=== PATIENT | female | born 1980 | race African-American/Black ===

== ENCOUNTER 2021-12-03 10:18 | Emergency (ER) | payer MEDICAID ==
[~2021-12-03] VITALS: Ht 162.6 cm; Wt 63.6 kg
[2021-12-03] MEDS ORDERED: SODIUM BICARBONATE 8.4% INJ 50ML SYRINGE IV ONE (10:19)
[2021-12-03] MEDS ORDERED: DOPamine 1600mCg/ml 400MG/250ml NSorD5 KIT/BAG IV ONE (10:19)
[2021-12-03] MEDS ORDERED: EPINEPHrine HCL 1 MG/10 ML SYRG IV ONE (10:19)
[2021-12-03] MEDS ORDERED: MAGNESIUM SULF 50% 40 MEQ/10 ML VL IV ONE (10:19)
[2021-12-03] MEDS ORDERED: AMIODARONE HCL (50 MG/ ML) 3 ML VIAL IV ONE (10:19)
[2021-12-03] MEDS ORDERED: CALCIUM CHLOR(10%) 100MG/ML 10ML SYRINGE IV ONE (10:19)
[2021-12-03] MEDS ORDERED: EPINEPHrine HCL 250 ML IV ONE (10:26)
[2021-12-03] MEDS ORDERED: fentaNYL Drip 2500mCg/250mlNS 250 ML IV SCH (10:30)
[2021-12-03] MEDS ORDERED: EPINEPHrine HCL 250 ML IV SCH (10:30)
[2021-12-03] MEDS ORDERED: MIDAZOLAM DRIP 50 mg/50mL 50 ML IV SCH (10:30)
[2021-12-03] MEDS ORDERED: SODIUM BICARBONATE 8.4% INJ 50ML SYRINGE ONE ×3 (10:32→10:50)
[2021-12-03] MEDS ORDERED: DOPamine 1600MCG/ML D5W 250 ML IV ONE (10:45)
[2021-12-03] MEDS ORDERED: cefTRIAXone 1GM/50ML D5W 50 ML IV ONE (10:45)
[2021-12-03] MEDS ORDERED: FUROSEMIDE 40 MG/4 ML VIAL IV ONE (10:45)
[2021-12-03] MEDS ORDERED: DOBUTamine 1000MCG/ML 250 ML IV ONE (10:45)
[2021-12-03] MEDS ORDERED: NOREPINEPHRINE 8 MG/250ML KIT 250 ML IV ONE (10:45)
[2021-12-03 11:06] LABS: Urine Amorphous Crystal FEW /hpf (None Seen); Urine Bacteria FEW /hpf (None Seen); Urine Blood Negative /uL (Negative); Urine Hyaline Cast FEW /lpf (0 - 2); Urine Specific Gravity 1.024 (1.001-1.035); Urine WBC 16 /hpf (0 - 5); Urine WBC Clumps PRESENT /hpf (None Seen)
[2021-12-03 11:08] LABS: Mean Corpuscular Volume 85.6 fL (80.0-100.0)
[2021-12-03 11:10] LABS: Hematocrit 16.6 % (36.0-46.0); Mean Corpuscular Hemoglobin 26.1 pg (28.0-32.0); Mean Corpuscular Hgb Conc. 30.5 g/dL (32.0-36.0); Red Blood Cells 1.94 10^6/uL (4.0-5.20); Red Cell Distribution Width 18.7 % (11.8-14.3); White Blood Cell 8.8 10^3/uL (4.4-10.8)
[2021-12-03] MEDS ORDERED: NOREPINEPHRINE 8 MG/250ML KIT 250 ML IV SCH (11:15)
[2021-12-03 11:18] LABS: Albumin 1.1 g/dL (3.4-5.0); Calcium 7.6 mg/dL (8.5-10.1); Potassium 4.2 mmol/L (3.5-5.1)
[2021-12-03 11:20] LABS: INR 1.61 (0.9-1.15)
[2021-12-03 11:23] LABS: Hemoglobin 5.1 g/dL (12.2-16.2); Partial Thromboplastin Time 74.3 sec (23.6-33.0)
[2021-12-03 11:26] LABS: BUN/Creatinine Ratio 30.5; Bilirubin, Total 0.3 mg/dL (0.2-1.0); CRP High Sensitivity 9.26 mg/dL (< 0.3); Total Protein 5.2 g/dL (6.4-8.2)
[2021-12-03 11:27] LABS: Magnesium 6.4 mg/dL (1.6-2.6)
[2021-12-03 11:29] LABS: Amphetamine Screen, Urine NEGATIVE (NEGATIVE); Barbiturate Scree,Urine NEGATIVE (NEGATIVE); Benzodiazephine Screen, Urine NEGATIVE (NEGATIVE); Cannabinoid Screen, Urine POSITIVE (NEGATIVE); Cocaine Screen, Urine NEGATIVE (NEGATIVE); Opiate Scree,Urine POSITIVE (NEGATIVE); Phencyclidine Screen, Urine NEGATIVE (NEGATIVE)
[2021-12-03 11:53] LABS: Basophils % (manual) 0 (0.0-2.0); Blast Cells 0; Eosinophils % (manual) 0 (0-7); Promyelocytes % 0; Reactive Lymphocytes 0
[2021-12-03 11:55] LABS: Band Neutrophils % (manual) 15; Lymphocytes % (manual) 54 (10.0-50.0); Metamyelocytes % 5; Monocytes % (manual) 3 (0-12); Myelocytes % 3
[2021-12-03] MEDS ORDERED: MORPHINE SULFATE INJECTION 2 MG/ML SYRG ONE (13:38)
[2021-12-03] MEDS ORDERED: MORPHINE SULFATE INJECTION 2 MG/ML SYRG IV ONE (13:45)
[2021-12-03 14:05] VITALS: BP 118/51
== END 2021-12-03 14:05 ==
LOC: EDBD 10:18 → ER 10:18
DX: I46.9 Cardiac arrest, cause unspecified (principal); J96.00 Acute respiratory failure, unspecified whether with hypoxia or hypercapnia; I11.0 Hypertensive heart disease with heart failure; I50.9 Heart failure, unspecified; E11.9 Type 2 diabetes mellitus without complications; R41.82 Altered mental status, unspecified
CPT/HCPCS: 36415; 36556; 36600; 71045; 80053; 80307; 81001; 82728; 82805; 83735; 83880; 84484; 85007; 85025; 85027; 85610; 85730; 86141; 86850; 86900; 86901; 86920; 87070; 87077; 87186; 87205; 87426; 96365; 96367; 96375; 99291; J0171; J0282; J0696; J1250; J1265; J1940; J2270; J3475; 93005; 94002